=== PATIENT | male | born 1980 | race Two or more races ===

== ENCOUNTER → 2021-08-29 | Emergency (ER) | payer OTHER ==
[~2021-08-29] VITALS: Ht 167.6 cm; Wt 72.6 kg
[~2021-08-29] MED LIST: IBUP800T27 PO; KETOROLAC TROMETH 60MG/2ML VIAL IM ONE; METH750T22 PO
[2021-08-29 15:42] VITALS: BP 133/90
== END | disposition home or self-care (01) ==
LOC: ER 14:08
DX: S43.015A Anterior dislocation of left humerus, initial encounter (principal); F12.10 Cannabis abuse, uncomplicated; F17.210 Nicotine dependence, cigarettes, uncomplicated; V86.59XA Driver of other special all-terrain or other off-road motor vehicle injured in nontraffic accident, initial encounter; Y93.89 Activity, other specified; Y92.89 Other specified places as the place of occurrence of the external cause; Y99.8 Other external cause status
CPT/HCPCS: 23650; 73020; 73030; 96372; 99284; J1885